=== PATIENT | female | born 1990 | race Caucasian/White ===

== ENCOUNTER 2019-08-16 17:44 | Emergency (ER) | payer OTHER ==
--- NOTE | 2019-08-16 18:03 | PDOC ---
Rapid Medical Evaluation Time Seen by Provider: 08/16/19 18:01 Medical Evaluation: 08/16/19 18:02 HPI: Drawing blood at out pt clinic and blood came into contact with a cut on her finger. Source pt unkown PE: No gross deficits ORDERS: Labs pt wants HIV prophylaxis Discharge Disposition - Diagnosis Patient exposure to body fluids - Referrals - Patient Instructions - Post Discharge Activity
[2019-08-16 18:09] VITALS: BP 109/65; PULSE 69; TEMP 98.5; BMI 22.8
[2019-08-16] MEDS ORDERED: HIV POST EXPOSURE PROPHYLAXIS KIT NR ONE (19:11)
--- NOTE | 2019-08-16 19:16 | PDOC ---
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 Patient reports s/p drawing blood without gloves today when some blood got on her finger. States drops of blood was on her finger and she has a previous scratch that is scabbed over on the finger. States unaware if blood got on that area of finger. Denies needle stick. States tetanus and hep b vaccines are up to date but would like to have labs drawn and pep given to be sure. LMp 07/23/2019 08/16/19 19:18 Timing: this afternoon Severity: mild Exposed Location: Left: Finger(s) Assessing Significant Risk PEP: Yes Blood, Yes Visibily Bloody Fluid Past History - Travel Traveled outside of the country in the last 30 days: No Close contact w/someone who was outside of country & ill: No - Psycho Social/Smoking Cessation Hx Smoking History: Never smoked Hx Alcohol Use: No Drug/Substance Use Hx: No Review of Systems - Review of Systems Able to Perform ROS?: Yes Is the patient limited Nepali proficient: No Constitutional: No: Chills, Fever HEENTM: No: Nose Congestion, Throat Pain, Throat Swelling Respiratory: No: Orthopnea, Shortness of Breath, SOB at Rest, Wheezing Cardiac (ROS): No: Chest Pain, Lightheadedness, Palpitations ABD/GI: No: Nausea, Poor Appetite, Rectal Bleeding, Vomiting, Indigestion : No: Burning, Dysuria, Discharge, Incontinence, Pain, Testicular Swelling Musculoskeletal: No: Back Pain, Joint Pain, Muscle Pain, Neck Pain Integumentary: No: Dryness, Erythema Neurological: No: Numbness, Paresthesia, Tingling Endocrine: No: Intolerance to Heat, Increased Urine, Unexplained Weight Gain Hematologic/Lymphatic: No: Blood Clots *Physical Exam - Vital Signs Last Vital Signs Temp Pulse Resp BP Pulse Ox 98.5 F 69 20 109/65 99 08/16/19 18:05 08/16/19 18:05 08/16/19 18:05 08/16/19 18:05 08/16/19 18:05 - Physical Exam General Appearance: Yes: Nourished, Appropriately Dressed HEENT: positive: TMs Normal, Pharynx Normal Neck: positive: Supple. 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 Patient reports s/p drawing blood without gloves today when some blood got on her finger. States drops of blood was on her finger and she has a previous scratch that is scabbed over on the finger. States unaware if blood got on that area of finger. Denies needle stick. # post body fluids exposure -post exposure labs ordered -pep hiv 08/16/19 20:04 patient instructed on standard precautions of using gloves always when handling body fluids, instructed patient if possible to find out status of patient Discharge - Discharge Information Problems reviewed: Yes Clinical Impression/Diagnosis: Patient exposure to body fluids Condition: Good Disposition: HOME - Admission No - Follow up/Referral Referrals: Eleonora Huerta [Primary Care Provider] - CallBack Reminder: labs - Patient Discharge Instructions Patient Printed Discharge Instructions: How to Handle Body Fluid Exposure -- Healthcare Worker - Post Discharge Activity Work/Back to School Note: Back to Work
[2019-08-16] MEDS ORDERED: HIV POST EXPOSURE PROPHYLAXIS KIT PO ONE (19:55)
[2019-08-16 20:26] LABS: EPI CELLS 1.2 /HPF (0-5/HPF); HYALINE CASTS 0 /lpf (0-8); PH,URINE 6.5 (5.0-8.0); URINE APPEARANCE CLEAR; URINE BACTERIA 148.4 /hpf (NEGATIVE); URINE BILIRUBIN NEGATIVE (NEGATIVE); URINE COLOR YELLOW; URINE GLUCOSE (UA) NEGATIVE (NEGATIVE); URINE KETONE NEGATIVE (NEGATIVE); URINE LEUK ESTERASE TRACE (NEGATIVE); URINE NITRITE NEGATIVE (NEGATIVE); URINE PROTEIN NEGATIVE (NEGATIVE); URINE RBC 4 /hpf (0-4); URINE UROBILINOGEN 0.2 mg/dL (0.2-1.0); URINE WBC 1 /hpf (0-5)
[2019-08-16 20:33] LABS: BASO % 0.3 % (0-2.0); EOS % 0.7 % (0-4.5); HEMATOCRIT 42.4 % (32.4-45.2); HEMOGLOBIN 14.2 GM/dL (10.7-15.3); LYMPH % 21.8 % (8-40); MCH 29.6 pg (25.7-33.7); MCHC 33.4 g/dl (32.0-36.0); MEAN CELL VOLUME 88.5 fl (80-96); MEAN PLT VOLUME 8.7 fl (7.5-11.1); MONO % 5.9 % (3.8-10.2); NEUT % 71.3 % (42.8-82.8); PLATELET COUNT 166 K/MM3 (134-434); RBC 4.79 M/mm3 (3.60-5.2); RDW 13.1 % (11.6-15.6); WHITE BLOOD COUNT 9.6 K/mm3 (4.0-10.0)
[2019-08-16 20:59] LABS: ALBUMIN 4.3 g/dl (3.4-5.0); BILIRUBIN,TOTAL 0.4 mg/dL (0.2-1); BLOOD UREA NITROGEN 10.8 mg/dL (7-18); CALCIUM 9.1 mg/dL (8.5-10.1); CREATININE 0.7 mg/dL (0.55-1.3); PHOSPHOROUS 3.8 mg/dL (2.5-4.9); POTASSIUM 3.6 mmol/L (3.5-5.1); TOT PROT 7.9 g/dl (6.4-8.2); URIC ACID 2.4 mg/dL (2.6-7.2)
[2019-08-18 02:11] LABS: HEP B CORE AB, TOT Negative (Negative)
== END 2019-08-16 20:14 | disposition home or self-care (01) ==
LOC: JERFT 17:44
DX: Z77.21 Contact with and (suspected) exposure to potentially hazardous body fluids (principal); X58.XXXA Exposure to other specified factors, initial encounter; Y93.89 Activity, other specified; Y92.538 Other ambulatory health services establishments as the place of occurrence of the external cause; Y99.8 Other external cause status
CPT/HCPCS: 36415; 80053; 81003; 82465; 82977; 83615; 84100; 84478; 84550; 84703; 85025; 86317; 86704; 86706; 86803; 87340; 87389; 99282-25